=== PATIENT | male | born 1960 | race African-American/Black ===

== ENCOUNTER 2021-12-10 18:38 | Emergency (ER) | payer MEDICAID ==
[~2021-12-10] VITALS: Ht 177.8 cm; Wt 91.0 kg
[2021-12-10 19:42] LABS: BASOPHILS % 0.4 % (0.0-2.0); EOSINOPHILS % 0.9 % (0.0-5.0); HEMATOCRIT. 41.6 % (42.0-52.0); HEMOGLOBIN. 13.6 g/dL (14.0-18.0); LYMPHOCYTES % 22.1 % (20.0-50.0); MEAN CORPUSCULAR HEMOGLOBIN 27.2 pg (28.0-32.0); MEAN CORPUSCULAR VOLUME 83.2 fL (80.0-94.0); MEAN PLATELET VOLUME 8.3 fl (7.4-10.4); NEUTROPHILS % 67.6 % (40.0-76.0); PLATELET 284 x1000/uL (130-400); RED CELL DISTRIBUTION WIDTH 15.7 % (11.6-14.6)
[2021-12-10 19:49] LABS: CHLORIDE 105 mEq/L (98-107)
[2021-12-10 21:14] VITALS: BP 146/85
== END 2021-12-10 21:16 ==
LOC: ER 18:38
DX: F41.0 Panic disorder [episodic paroxysmal anxiety] (principal); R06.00 Dyspnea, unspecified; I11.0 Hypertensive heart disease with heart failure; I50.9 Heart failure, unspecified
CPT/HCPCS: 36415; 71045; 80053; 85025; 93005; 99285

== ENCOUNTER 2024-11-29 10:29 | Emergency (ER) | payer MEDICARE, MEDICAID ==
[~2024-11-29] VITALS: Ht 185.4 cm; Wt 84.0 kg
[~2024-11-29 10:29] MED LIST: ASPI-1497 MT; ATOR-2 MT; HYDR50TA40 MT; LEVO50TA8 MT; METO25TA6 MT
[2024-11-29 10:37] VITALS: O2SAT 98
[2024-11-29 11:12] LABS: BASOPHILS % 0.7 % (0.0-2.0); EOSINOPHILS % 2.0 % (0.0-5.0); HEMATOCRIT. 33.6 % (42.0-52.0); HEMOGLOBIN. 11.1 g/dL (14.0-18.0); LYMPHOCYTES % 16.9 % (20.0-50.0); MEAN PLATELET VOLUME 7.8 fl (7.4-10.4); MONOCYTES % 12.6 % (2.0-8.0); NEUTROPHILS % 67.8 % (40.0-76.0); PLATELET 291 x1000/uL (130-400); RED BLOOD CELL COUNT 3.94 mill/uL (4.7-6.1); RED CELL DISTRIBUTION WIDTH 15.0 % (11.6-14.6)
[2024-11-29 11:25] LABS: UREA NITROGEN BLOOD 18 mg/dL (9-23)
[2024-11-29 11:26] LABS: ETHANOL BLOOD < 10 mg/dL (<10); TROPONIN I HIGH SENSITIVITY 11 ng/L (3.0-53)
[2024-11-29 11:27] LABS: INR 1.0
[2024-11-29 11:31] LABS: CREATININE 1.4 mg/dL (0.6-1.3)
[2024-11-29] MEDS ORDERED: IOHEXOL-350 100 ML BOTTLE ONE (12:10)
[2024-11-29 14:20] LABS: *AMPHETAMINES SCREEN URINE NEGATIVE (NEGATIVE); *BARBITURATES SCREEN URINE NEGATIVE (NEGATIVE); *BENZODIAZEPINES SCREEN URINE NEGATIVE (NEGATIVE); *COCAINE SCREEN URINE NEGATIVE (NEGATIVE); CANNABINOID URINE SCREEN PRESUMPTIVE POSITIVE (NEGATIVE); ECSTASY MDMA SCREEN URINE NEGATIVE (NEGATIVE); METHADONE URINE SCREEN NEGATIVE (NEGATIVE); OPIATES URINE SCREEN NEGATIVE (NEGATIVE); PHENCYCLIDINE URINE SCREEN NEGATIVE (NEGATIVE)
[2024-11-29] MEDS: SODIUM CHLORIDE 0.9% 500 ML IV ONE (14:42)
[2024-11-29 15:08] LABS: CLARITY URINE CLEAR (CLEAR); COLOR URINE YELLOW (YELLOW); GLUCOSE URINE NEGATIVE (NEGATIVE); KETONES URINE NEGATIVE (NEGATIVE); LEUKOCYTE ESTERASE URINE 1+ (NEGATIVE); NITRITE URINE NEGATIVE (NEGATIVE); OCCULT BLOOD URINE NEGATIVE (NEGATIVE); PH URINE 6.5 (4.5-8.0); PROTEIN URINE NEGATIVE (NEGATIVE); SPECIFIC GRAVITY URINE 1.028 (1.005-1.030); UROBILINOGEN URINE 1.0 E.U./dL (0.2-1.0)
[2024-11-29 15:08] LABS: TROPONIN I HIGH SENSITIVITY 11 ng/L (3.0-53)
[2024-11-29 15:37] LABS: SQUAMOUS EPITHELIAL CELL URINE NONE SEEN /lpf (RARE/1+)
[2024-11-29 15:38] LABS: BACTERIA URINE TRACE; MUCUS URINE TRACE /lpf (NONE/TRACE); RBC URINE NONE SEEN /hpf (0-2)
[2024-11-29] MEDS ORDERED: CEFP200T13 MT (15:44)
[2024-11-29] MEDS: CEFTRIAXONE 1GM/50ML 50 ML IV ONE (15:56)
[2024-11-29 16:20] VITALS: BP 118/59; PULSE 75; RESP 18; TEMP 37; O2SAT 98
== END 2024-11-29 16:20 | disposition home or self-care (01) ==
LOC: ER 10:29 → EDBEDREQ 10:54 → ER 16:20
DX: R55 Syncope and collapse (principal); N39.0 Urinary tract infection, site not specified; E03.9 Hypothyroidism, unspecified; I11.0 Hypertensive heart disease with heart failure; I50.9 Heart failure, unspecified; Z79.899 Other long term (current) drug therapy; Z86.73 Personal history of transient ischemic attack (TIA), and cerebral infarction without residual deficits; Z98.890 Other specified postprocedural states
CPT/HCPCS: 80305; 80048; 81003; 80320; 83880; 83605; 85025; 85610; 86850; 86900; 86901; 87040; 87086; 84484; 36415; 84145; 71045; 70496; 70498; 70450; 93005; 96361; 96365; 99285; Q9967; J0696; J7040; G0480